=== PATIENT | male | born 1970 | race Caucasian/White ===

== ENCOUNTER 2017-05-28 11:07 | Emergency (ER) | payer OTHER ==
[2017-05-28] MEDS: ACETAMINOPHEN 500 MG TAB PO (12:20)
[2017-05-28] MEDS: IBUPROFEN 600 MG TAB PO (12:20)
[2017-05-28] MEDS: SOD CHLORIDE 0.9% 1,000 ML IV (12:33)
[2017-05-28 12:47] LABS: URINE BLOOD (Dip) POC Trace-intact (NEGATIVE); URINE GLUCOSE (Dip) POC Negative (NEGATIVE); URINE KETONES (Dip) POC Negative (NEGATIVE); URINE LEUKOCYTE EST (Dip) POC Negative (NEGATIVE); URINE NITRITE (Dip) POC Negative (NEGATIVE); URINE TOTAL PROTEIN POC Trace (NEGATIVE)
[2017-05-28 12:47] LABS: URINE PH (Dip) POC 8.5 (5.0-8.5)
== END 2017-05-28 14:30 | disposition home or self-care (01) ==
LOC: FTE 11:07
DX: R50.9 Fever, unspecified (principal); R05 Cough
CPT/HCPCS: 81003; 99284-25

== ENCOUNTER 2018-07-03 22:29 | Emergency (ER) | payer OTHER ==
[2018-07-04] MEDS: TETRACAINE 0.5% 4 ML OPH LEFT EYE (04:28)
[2018-07-04] MEDS: FLUORESCEIN STRIP LEFT EYE (04:28)
[2018-07-04] MEDS: POLYMYXIN/TRIMETHOPRIM 10 ML OPH LEFT EYE ×2 (04:31→04:42)
== END 2018-07-04 05:32 | disposition home or self-care (01) ==
LOC: FTE 22:29
DX: H10.32 Unspecified acute conjunctivitis, left eye (principal); Z21 Asymptomatic human immunodeficiency virus [HIV] infection status
CPT/HCPCS: 99283; Z7610